=== PATIENT | female | born 1995 | race Caucasian/White ===

== ENCOUNTER 2019-03-04 17:34 | Emergency (ER) | payer OTHER ==
[~2019-03-04] VITALS: Ht 182.9 cm; Wt 79.8 kg
== END 2019-03-04 20:14 | disposition home or self-care (01) ==
LOC: ER 17:34
DX: J31.2 Chronic pharyngitis (principal)

== ENCOUNTER 2022-04-18 12:37 | Outpatient (CLI) | payer OTHER | END 2022-04-18 12:46 | disposition home or self-care (01) | LOC: RAD 12:37 | DX: M99.01 Segmental and somatic dysfunction of cervical region (principal); M99.02 Segmental and somatic dysfunction of thoracic region; M99.03 Segmental and somatic dysfunction of lumbar region; M99.04 Segmental and somatic dysfunction of sacral region; M99.05 Segmental and somatic dysfunction of pelvic region ==

== ENCOUNTER 2024-01-30 13:29 | Outpatient (CLI) | payer OTHER | END 2024-01-30 13:38 | disposition home or self-care (01) | LOC: RAD 13:29 | PROVIDERS: ATTEND Obstetrics & Gynecology Obstetrics | DX: M99.03 Segmental and somatic dysfunction of lumbar region (principal); M99.04 Segmental and somatic dysfunction of sacral region; M99.05 Segmental and somatic dysfunction of pelvic region ==

== ENCOUNTER 2024-03-17 12:19 | Outpatient (CLI) | payer OTHER | END 2024-03-17 12:29 | disposition home or self-care (01) | LOC: RAD 12:19 | PROVIDERS: ATTEND Obstetrics & Gynecology Obstetrics | DX: M25.562 Pain in left knee (principal) ==

== ENCOUNTER 2024-10-02 12:46 | Outpatient (CLI) | payer OTHER | END 2024-10-02 12:56 | disposition home or self-care (01) | LOC: RAD 12:46 | DX: M25.511 Pain in right shoulder (principal) ==

== ENCOUNTER 2025-02-01 02:00 | Emergency (ER) | payer OTHER ==
[~2025-02-01] VITALS: Ht 177.8 cm; Wt 86.2 kg
[2025-02-01] MEDS ORDERED: KETOROLAC TROMETHAMINE 60 MG VIAL IM STA (03:05)
[2025-02-01] MEDS ORDERED: ORPHENADRINE CITRATE 30 MG/ML AMPUL IM STA (03:06)
[2025-02-01] MEDS ORDERED: KETO10TA2 PO (05:18)
[2025-02-01] MEDS ORDERED: NORFLEX100MG PO (05:18)
== END 2025-02-01 05:22 ==
LOC: ER 02:34
DX: M54.9 Dorsalgia, unspecified (principal); Z88.0 Allergy status to penicillin